=== PATIENT | male | born 1950 | race African-American/Black ===

== ENCOUNTER 2024-11-24 14:42 | Emergency (ER) | payer MEDICARE, MEDICAID ==
[~2024-11-24] VITALS: Ht 172.7 cm; Wt 71.0 kg
[2024-11-24 14:46] VITALS: O2SAT 99
[2024-11-24] MEDS: SODIUM CHLORIDE 0.9% (SEPSIS BOLUS) IV ONE (15:31)
[2024-11-24] MEDS: PIPERACILLIN/TAZO 3.375G/50ML 50 ML IV ONE (15:32)
[2024-11-24 15:43] LABS: BASOPHILS % 1.2 % (0.0-2.0); EOSINOPHILS % 13.3 % (0.0-5.0); HEMATOCRIT. 40.1 % (42.0-52.0); LYMPHOCYTES % 31.2 % (20.0-50.0); MEAN CORPUSCULAR HEMOGLOBIN 27.3 pg (28.0-32.0); MEAN CORPUSCULAR HGB CONC 32.4 g/dL (31.0-37.0); MEAN CORPUSCULAR VOLUME 84.1 fL (80.0-94.0); MEAN PLATELET VOLUME 10.9 fl (7.4-10.4); MONOCYTES % 11.1 % (2.0-8.0); NEUTROPHILS % 43.2 % (40.0-76.0); PLATELET 79 x1000/uL (130-400); RED BLOOD CELL COUNT 4.76 mill/uL (4.7-6.1); RED CELL DISTRIBUTION WIDTH 14.6 % (11.6-14.6); WHITE BLOOD COUNT 4.6 x1000/uL (4.5-11.0)
[2024-11-24 15:49] LABS: CARBON DIOXIDE 27 mEq/L (21-32); CHLORIDE 97 mEq/L (98-107); POTASSIUM 4.5 mEq/L (3.5-5.1); SODIUM 134 mEq/L (136-145)
[2024-11-24 15:50] LABS: CALCIUM 9.3 mg/dL (8.7-10.4)
[2024-11-24 15:54] LABS: CREATININE 1.4 mg/dL (0.6-1.3)
[2024-11-24 15:55] LABS: ETHANOL BLOOD < 10 mg/dL (<10); GLUCOSE 320 mg/dL (70-105); TROPONIN I HIGH SENSITIVITY 9 ng/L (3.0-53); UREA NITROGEN BLOOD 16 mg/dL (9-23)
[2024-11-24 15:56] LABS: ALANINE AMINOTRANSFERASE 16 IU/L (10-49); ALBUMIN 4.5 g/dL (3.2-4.8); ASPARTATE AMINOTRANSFERASE 28 IU/L (<34)
[2024-11-24 15:57] LABS: BILIRUBIN DIRECT 0.2 mg/dL (<=3.0); BILIRUBIN TOTAL 0.5 mg/dL (0.1-1.0); CREATINE KINASE 98 IU/L (46-171); PROTEIN TOTAL 7.7 g/dL (6.0-8.3)
[2024-11-24 16:26] LABS: PROTHROMBIN TIME 10.9 sec (9.6-11.0)
[2024-11-24] MEDS: VANCOMYCIN 1G PREMIX 200 ML IV ONE (16:27)
[2024-11-24 17:31] LABS: CLARITY URINE CLEAR (CLEAR); COLOR URINE YELLOW (YELLOW); GLUCOSE URINE 3+ (NEGATIVE); KETONES URINE NEGATIVE (NEGATIVE); LEUKOCYTE ESTERASE URINE NEGATIVE (NEGATIVE); NITRITE URINE NEGATIVE (NEGATIVE); OCCULT BLOOD URINE NEGATIVE (NEGATIVE); PROTEIN URINE NEGATIVE (NEGATIVE); UROBILINOGEN URINE 0.2 E.U./dL (0.2-1.0)
[2024-11-24 17:41] LABS: BACTERIA URINE TRACE; RBC URINE NONE SEEN /hpf (0-2); SQUAMOUS EPITHELIAL CELL URINE FEW /lpf (RARE/1+); WBC URINE 0-2 /hpf (0-2)
[2024-11-24 17:56] LABS: *AMPHETAMINES SCREEN URINE NEGATIVE (NEGATIVE); *BARBITURATES SCREEN URINE NEGATIVE (NEGATIVE); *BENZODIAZEPINES SCREEN URINE NEGATIVE (NEGATIVE); *COCAINE SCREEN URINE NEGATIVE (NEGATIVE); METHADONE URINE SCREEN NEGATIVE (NEGATIVE)
[2024-11-24 17:57] LABS: CANNABINOID URINE SCREEN PRESUMPTIVE POSITIVE (NEGATIVE); ECSTASY MDMA SCREEN URINE NEGATIVE (NEGATIVE); OPIATES URINE SCREEN NEGATIVE (NEGATIVE); PHENCYCLIDINE URINE SCREEN NEGATIVE (NEGATIVE)
[2024-11-24 19:16] VITALS: BP 113/75; PULSE 73; RESP 12; TEMP 36.8; O2SAT 98
== END 2024-11-24 19:28 | disposition home or self-care (01) ==
LOC: ER 14:42
DX: N17.9 Acute kidney failure, unspecified (principal); E11.65 Type 2 diabetes mellitus with hyperglycemia; I10 Essential (primary) hypertension; F12.90 Cannabis use, unspecified, uncomplicated; F17.200 Nicotine dependence, unspecified, uncomplicated; Z79.899 Other long term (current) drug therapy
CPT/HCPCS: 80076; 80305; 80048; 81003; 80320; 82550; 83880; 83605; 85025; 85610; 86850; 86900; 86901; 87040; 87086; 84484; 36415; 84145; 71045; 70450; 93005; 96367; 96365; 96366; 99285; J2543; J3370; J7030; A4606; G0480

== ENCOUNTER 2025-06-08 12:45 | Emergency (ER) | payer MEDICARE, MEDICAID ==
[~2025-06-08] VITALS: Ht 180.3 cm; Wt 86.0 kg
[~2025-06-08 12:45] MED LIST: AMOX1TAB16 MT; ASPI-1406 PO; ATOR40TA70 PO; INSU100I28 SUBCUT; METF-414 PO; TAMS-54 PO
[2025-06-08 12:50] VITALS: O2SAT 96
[2025-06-08 13:52] LABS: BASOPHILS % 0.9 % (0.0-2.0); EOSINOPHILS % 13.3 % (0.0-5.0); HEMATOCRIT. 35.4 % (42.0-52.0); HEMOGLOBIN. 11.1 g/dL (14.0-18.0); LYMPHOCYTES % 17.0 % (20.0-50.0); MEAN PLATELET VOLUME 9.5 fl (7.4-10.4); MONOCYTES % 11.0 % (2.0-8.0); NEUTROPHILS % 57.8 % (40.0-76.0); PLATELET 122 x1000/uL (130-400); RED BLOOD CELL COUNT 4.36 mill/uL (4.7-6.1); RED CELL DISTRIBUTION WIDTH 15.5 % (11.6-14.6)
[2025-06-08 14:01] LABS: CREATININE 1.1 mg/dL (0.6-1.3); UREA NITROGEN BLOOD 11 mg/dL (9-23)
[2025-06-08 14:27] LABS: TROPONIN I HIGH SENSITIVITY 17 ng/L (3.0-53)
[2025-06-08 15:21] VITALS: BP 109/68; PULSE 82; RESP 18; TEMP 36.9; O2SAT 100
== END 2025-06-08 15:24 | disposition home or self-care (01) ==
LOC: ER 12:45 → CANBEDREQ 15:11 → ER 15:24
DX: B34.9 Viral infection, unspecified (principal); E11.9 Type 2 diabetes mellitus without complications; I10 Essential (primary) hypertension; Z79.4 Long term (current) use of insulin; Z79.899 Other long term (current) drug therapy
CPT/HCPCS: 36415; 71045; 80048; 84484; 85025; 93005; 99285